=== PATIENT | male | born 1985 | race African-American/Black ===

== ENCOUNTER 2018-01-16 13:23 | Inpatient (IN) | payer OTHER ==
[~2018-01-16] VITALS: Ht 182.9 cm; Wt 83.6 kg
[2018-01-16] VITALS (9 sets, daily range): BP systolic 99–134; BP diastolic 45–82
--- NOTE | ~2018-01-16 | HC ---
[facility] [place] [address] CONSULTATION Name: BIENVENIDO JORDAN Room #: 430-[facility] IN M.R.#: [id number] Admission: 01/16/18 Attend Phys: Kevin Patricia MD Discharge: 01/19/18 Date of : 87 Report #: [id number] THIS REPORT FOR: //name// CC: Kevin Patricia [facility] physician/PCP DATE OF SERVICE: 01/17/2018 HISTORY OF PRESENT ILLNESS: The patient is a 32-year-old male who reports melanotic type stools over the last several days. He denies any significant abdominal pain. No nausea or vomiting. No hematemesis. Denies any NSAID use. No previous history of GI bleed. When the patient was admitted, his hemoglobin was 6.5. He has been transfused 2 units of packed cells. No previous history of endoscopy. His weight has been stable. PAST MEDICAL HISTORY: Unremarkable. REVIEW OF SYSTEMS: As per HPI. MEDICATIONS AT HOME: None. FAMILY HISTORY: Negative for colon cancer or inflammatory bowel disease. SOCIAL HISTORY: He denies any tobacco use. He reports occasional alcohol use. PHYSICAL EXAMINATION: VITAL SIGNS: Temperature is 98.8, pulse 103, blood pressure 104/56, respiratory rate is 16. GENERAL: He is alert and oriented x 3 in no acute distress. HEENT: Sclerae nonicteric. Oropharynx clear. NECK: Supple, without lymphadenopathy. CARDIOVASCULAR: Regular rate and rhythm. CHEST: Clear to auscultation bilaterally. ABDOMEN: Soft. He is nontender, nondistended, normoactive bowel sounds. EXTREMITIES: No cyanosis, clubbing or edema. LABORATORY DATA: Sodium 136, potassium 3.8, chloride 103, bicarbonate 28, BUN 23, creatinine 1.0, glucose 114, AST 14, lipase 87, total bilirubin 0.2, alkaline phosphatase 30, ALT is 18, albumin 3.0. This is all from yesterday. WBC 6.6, hemoglobin 6.5, MCV 91.1, platelet count is 190. ASSESSMENT AND PLAN: Severe anemia. The patient with recent melanotic stools. Plan is to proceed with upper endoscopy today for further evaluation. The patient was transfused 2 units and need to repeat hemoglobin and continue to monitor closely. The patient has been started yesterday on a Protonix drip. [address] [address] CONSULTATION Name: BIENVENIDO JORDAN Room #: [address] [place] [address] IN ..#: [id number] Admission: 01/16/18 Attend Phys: Kevin Patricia MD Discharge: 01/19/18 Date of : 87 Report #: [id number] Thank you for allowing me to participate in his care. <ELECTRONICALLY SIGNED> By: Tevin Wiggins MD 01/25/18 0922 1056 1858 Tevin Wiggins MD /nt
--- NOTE | ~2018-01-16 | P ---
[facility] [place] [address] PROCEDURE REPORT Name: BIENVENIDO JORDAN Room #: 430-P [facility] IN M.R.#: [id number] Admission: 01/16/18 Attend Phys: Kevin Patricia MD Discharge: 01/19/18 Date of : 87 Report #: [id number] THIS REPORT FOR: //name// CC: Kevin Patricia [facility] physician/PCP DATE OF SERVICE: 01/17/2018 PROCEDURE PERFORMED: Upper endoscopy with biopsies. HISTORY OF PRESENT ILLNESS: The patient is a 32-year-old male with recent melanotic stools, admit hemoglobin of 6.5. He has been transfused 2 units. No previous history of NSAID use or GI bleed. Plan is for upper endoscopy. DESCRIPTION OF PROCEDURE: The risks and benefits of the procedure were explained to the patient, those risks including but not limited to bleeding, perforation and the risk of sedation. He understood these risks and gave informed consent. Sedation was given using propofol per anesthesia. Next using a standard Aipain upper endoscope, the scope was placed in the patient's mouth and advanced under direct vision through the esophagus, stomach and into the second portion of the duodenum. The esophagus was normal throughout. The GE junction was normal. In the stomach, there was a fresh clot noted which is fairly small. There was a mild gastritis. Biopsies were obtained to rule out H. pylori. The pylorus was normal and patent. In the distal duodenal bulb, first portion of the duodenum, there was an ulcer with a fresh clot. Due to the size and the depth of the ulcer, I did not feel that cautery would be beneficial. It was not something that could be clipped as well. There was no active bleeding at this time, but again there was fresh clot in this area. The second portion of the duodenum was normal. The scope was then withdrawn and the procedure terminated. The patient tolerated the procedure well. IMPRESSION: 1. Duodenal ulcer with fresh clot, likely source of recent gastrointestinal bleed and anemia. 2. Gastritis. Biopsies obtained to rule out H. pylori. RECOMMENDATIONS: 1. Await biopsy results. 2. Continue PPI drip today. 3. We will add Carafate at this time. 4. Repeat hemoglobin and monitor closely. [facility] [address] [place] [address] PROCEDURE REPORT Name: BIENVENIDO JORDAN Room #: 430-P [facility] IN M.R.#: [id number] Admission: 01/16/18 Attend Phys: Kevin Patricia MD Discharge: 01/19/18 Date of : 87 Report #: [id number] Thank you for allowing me to participate in his care. <ELECTRONICALLY SIGNED> By: Tevin Wiggins MD 01/25/18 0922 1059 50 Tevin Wiggins MD /nt
--- NOTE | ~2018-01-16 | S ---
[facility] [place] [address] SURGICAL PATH RPT PROCEDURE Name: BIENVENIDO JORDAN Room #: 430-P ADM IN M.R.#: [id number] Admission: 01/16/18 Date of : 87 Discharge: Report #: [id number] Path Case #: [id number] PATHOLOGY REPORT COLLECTION DATE: 01/17/2018 RECEIVED DATE: 01/18/2018 SUBMITTING PHYS: Dr. Tevin Wiggins OTHER PHYS: Kevin Patricia M.D. SPECIMEN(S) RECEIVED: A.Bx of gastritis * * * * * * * * * * * * FINAL DIAGNOSIS: A. Bx of gastritis: - H. pylori gastritis (Chronic active gastritis with H. pylori organisms). - An H. pylori immunostain is POSITIVE (Block A1; appropriately reactive control). PATHOLOGIST: Wallace Li M.D. REPORT ELECTRONICALLY SIGNED BY: Wallace Li M.D. DATE/TIME: 01/19/2018 09:42 * * * * * * * * * * * * GROSS PATHOLOGY: Received in formalin labeled "JulianBienvenido BX of gastritis" and consists of 4 bills mucosal biopsies ranging in size from 0.2 cm-0.4 cm. They are entirely submitted as A1. (CASSIE; 01/18/2018) CLINICAL HISTORY: GI bleed INITIAL CPT CODE(S): A; 09862, 11936 Professional services performed by [facility] at [facility] [address] , [place] [address] Technical services performed by [facility] at [address] [place] [address], [facility] [address], [place] [address]. [facility] [address] [place] [address] SURGICAL PATH RPT PROCEDURE Name: JULIANBIENVENIDO Room #: 430-P ADM IN M.R.#: [id number] Admission: 01/16/18 Date of : 87 Discharge: Report #: [id number] Path Case #: [id number] [place] [id number] [address] [address] PHONE: [phone] DIRECTOR: Dev Doyle M.D. * * * END OF REPORT * * *
[2018-01-16 14:17] LABS: POTASSIUM 3.8 mmol/L (3.5-5.1)
[2018-01-16 14:19] LABS: ABSOLUTE NEUTROPHILS 4.1 thou/uL (1.4-8.2); BASOPHILS 0.3 % (0.0-2.0); EOSINOPHILS 0.1 % (0.0-3.0); HEMOGLOBIN 6.5 gm/dL (14.0-18.0); LYMPHOCYTES 30.4 % (24.0-44.0); MCH 32.6 pg (26.0-34.0); MCHC 35.8 g/dL (28.0-37.0); MCV 91.1 fL (80.0-100.0); MONOCYTES 6.8 % (1.0-8.0); PLATELET COUNT 190 thou/uL (150-400); POLYS 62.4 % (36.0-66.0); RBC 1.98 mil/uL (4.50-6.00); RDW 14.8 % (10.5-14.5); WBC 6.6 thou/uL (4.0-11.0)
[2018-01-16 14:23] LABS: TOTAL BILIRUBIN 0.2 mg/dL (<0.1-1.0); TOTAL PROTEIN 5.5 g/dL (6.4-8.2)
[2018-01-17] VITALS (8 sets, daily range): BP systolic 92–123; BP diastolic 45–71
[2018-01-17 11:24] LABS: RBC 1.72 mil/uL (4.50-6.00)
[2018-01-17 11:25] LABS: MCHC 34.5 g/dL (28.0-37.0); MCV 89.9 fL (80.0-100.0); RDW 14.6 % (10.5-14.5); WBC 7.4 thou/uL (4.0-11.0)
[2018-01-17 11:28] LABS: HEMATOCRIT 15.5 % (42.0-52.0)
[2018-01-17 11:30] LABS: HEMOGLOBIN 5.3 gm/dL (14.0-18.0)
[2018-01-18 03:50] VITALS: BP 109/57
[2018-01-18 04:38] LABS: ABSOLUTE NEUTROPHILS 4.4 thou/uL (1.4-8.2); BASOPHILS 0.1 % (0.0-2.0); EOSINOPHILS 0.6 % (0.0-3.0); HEMOGLOBIN 6.8 gm/dL (14.0-18.0); LYMPHOCYTES 28.9 % (24.0-44.0); MCH 31.5 pg (26.0-34.0); MCHC 35.2 g/dL (28.0-37.0); MCV 89.5 fL (80.0-100.0); MONOCYTES 6.9 % (1.0-8.0); PLATELET COUNT 155 thou/uL (150-400); POLYS 63.5 % (36.0-66.0); RBC 2.17 mil/uL (4.50-6.00); RDW 14.4 % (10.5-14.5)
[2018-01-18 04:43] LABS: HEMATOCRIT 19.5 % (42.0-52.0)
[2018-01-18 08:13] VITALS: BP 107/54
[2018-01-18 08:46] VITALS: BP 116/57; BP 116/60
[2018-01-18 14:16] VITALS: BP 104/61; BP 116/57; BP 124/63
[2018-01-18 20:04] VITALS: BP 105/56
[2018-01-19 03:19] VITALS: BP 104/63
[2018-01-19 05:18] LABS: ABSOLUTE NEUTROPHILS 6.2 thou/uL (1.4-8.2); BASOPHILS 0.2 % (0.0-2.0); EOSINOPHILS 0.6 % (0.0-3.0); HEMATOCRIT 25.8 % (42.0-52.0); LYMPHOCYTES 22.8 % (24.0-44.0); MCH 30.9 pg (26.0-34.0); MCHC 34.2 g/dL (28.0-37.0); MCV 90.3 fL (80.0-100.0); MONOCYTES 6.3 % (1.0-8.0); PLATELET COUNT 207 thou/uL (150-400); POLYS 70.1 % (36.0-66.0); RBC 2.86 mil/uL (4.50-6.00); RDW 15.3 % (10.5-14.5); WBC 8.9 thou/uL (4.0-11.0)
[2018-01-19 05:39] LABS: HEMOGLOBIN 8.8 gm/dL (14.0-18.0)
[2018-01-19 08:04] VITALS: BP 104/63
[2018-01-19] MEDS ORDERED: PROTONIX40 M1 PO (08:40)
[2018-01-19] MEDS ORDERED: CARAFATE 1 GM TA1 G1 PO (08:40)
[2018-01-19] MEDS ORDERED: FLAGYL500 MG PO (15:10)
[2018-01-19] MEDS ORDERED: BIAXIN 250MG T250 MG PO (15:12)
[2018-01-19 15:39] VITALS: BP 108/60
[2018-01-19 16:14] VITALS: BP 108/60
== END 2018-01-19 18:18 | disposition home or self-care (01) | DRG 378 ==
LOC: ER 13:23 → EROBS 14:56 → 4E 14:56
PROVIDERS: Hospitalist; Physician Assistant
PROC: 30233N1 Transfusion of Nonautologous Red Blood Cells into Peripheral Vein, Percutaneous Approach (ICD-10-PCS; 2018-01-16)
PROC: 0DB68ZX Excision of Stomach, Via Natural or Artificial Opening Endoscopic, Diagnostic (ICD-10-PCS; principal; 2018-01-17)
DX: K26.4 Chronic or unspecified duodenal ulcer with hemorrhage (principal); D62 Acute posthemorrhagic anemia; K29.71 Gastritis, unspecified, with bleeding
CPT/HCPCS: 10084; 62110; 62900; 70005